=== PATIENT | male | born 1995 | race Caucasian/White ===

== ENCOUNTER 2020-10-08 14:35 | Emergency (ER) | payer OTHER ==
[~2020-10-08 14:35] MED LIST: IBUPROFEN600 MG PO
== END 2020-10-08 16:15 | disposition left against medical advice (07) ==
LOC: ER1 14:35
DX: Z53.21 Procedure and treatment not carried out due to patient leaving prior to being seen by health care provider (principal)

== ENCOUNTER 2020-10-10 19:09 | Emergency (ER) | payer OTHER | END 2020-10-10 21:10 | disposition home or self-care (01) | LOC: ER1 19:09 | DX: S59.901A Unspecified injury of right elbow, initial encounter (principal); X58.XXXA Exposure to other specified factors, initial encounter; Z53.21 Procedure and treatment not carried out due to patient leaving prior to being seen by health care provider ==

== ENCOUNTER 2021-04-14 17:49 | Emergency (ER) | payer OTHER | END 2021-04-14 20:59 | disposition home or self-care (01) | LOC: ER1 17:49 | DX: S61.213A Laceration without foreign body of left middle finger without damage to nail, initial encounter (principal); W26.8XXA Contact with other sharp object(s), not elsewhere classified, initial encounter; Z23 Encounter for immunization; E11.9 Type 2 diabetes mellitus without complications; F17.210 Nicotine dependence, cigarettes, uncomplicated | CPT/HCPCS: 73140; 90471; 90715; 99283 ==